=== PATIENT | female | born 1970 | race African-American/Black ===

== ENCOUNTER 2017-06-05 13:40 | Emergency (ER) | payer MEDICARE, MEDICAID ==
[~2017-06-05] VITALS: Ht 160 cm; Wt 47.5 kg
[2017-06-05 14:04] VITALS: Ht 160 cm; Wt 47.5 kg
--- NOTE | 2017-06-05 15:55 | ERD ---
ER Documentation Chief Complaint Date/Time DATE: 06/05/17 TIME: 15:53 Chief Complaint pt c/o blood in urine x 2 days HPI 46-year-old female presents to the ER with urinary frequency, dysuria and hematuria for the last 2 days. Patient denies any abdominal pain or any flank pain. She denies any fevers or chills. She denies any vaginal discharge. Denies any nausea vomiting or diarrhea. ROS 12 point review of systems was done, all negative except per HPI. Medications Home Meds Active Scripts Phenazopyridine Hcl* (Pyridium*) 100 Mg Tab, 100 MG PO TID, #9 TAB Prov:ANTONI SANDERS C 06/05/17 Cephalexin* (Keflex*) 500 Mg Capsule, 500 MG PO BID for 7 Days, CAP Prov:TOMMY,ANTONI C 06/05/17 Allergies Allergies: Coded Allergies: No Known Allergy (Unverified , 06/05/17) Physical Exam Vitals Vital Signs Date Time Temp Pulse Resp B/P Pulse Ox O2 Delivery O2 Flow Rate FiO2 06/05/17 14:04 98.3 92 18 136/86 99 Physical Exam GENERAL: The patient is well developed and appropriate for usual state of health , in no apparent distress. HEENT: Atraumatic. CHEST: Clear to auscultation bilaterally. There are no rales, wheezes or rhonchi. HEART: Regular rate and rhythm. No murmurs, clicks, rubs or gallops. ABDOMEN: Soft, nontender and nondistended. Good bowel sounds. No rebound or guarding. No gross peritonitis. No gross organomegaly or masses. No Chavez sign or McBurney point tenderness. BACK: No midline or flank tenderness. NEURO: Alert and oriented. Results 24 hrs Laboratory Tests Test 06/05/17 16:09 Bedside Urine pH (LAB) 6.5 Bedside Urine Protein (LAB) 2+ Bedside Urine Glucose (UA) Negative Bedside Urine Ketones (LAB) Negative Bedside Urine Blood 2+ Bedside Urine Nitrite (LAB) Negative Bedside Urine Leukocyte Esterase (L 3+ Procedures/MDM This is a 46-year-old female presents to the ER with urinary frequency and dysuria for the last 2 days. Patient does have a urinary tract infection likely the cause of her hematuria. Patient does not have any flank pain, nausea , vomiting, fever, chills patient is afebrile and extremely well-appearing. She will be sent home with Keflex and Pyridium. She is to follow-up with her primary care doctor within 1-2 days or return to ER sooner if symptoms worsen. My medical decision making was shared with the patient, she understands and agrees with plan. Departure Diagnosis: Primary Impression: UTI (urinary tract infection) Condition: Stable ANTONI SANDERS Jun 05, 2017 15:55
[2017-06-05 16:01] LABS: URINE BLOOD (Dip) POC 2+ (NEGATIVE)
[2017-06-05] MEDS ORDERED: CEPH-443 PO (16:13)
[2017-06-05] MEDS ORDERED: PHEN-537 PO (16:13)
== END 2017-06-05 16:35 | disposition home or self-care (01) ==
LOC: FTE 13:40
DX: N39.0 Urinary tract infection, site not specified (principal)
CPT/HCPCS: 81003; 99283